=== PATIENT | male | born 1950 | race Caucasian/White ===

== ENCOUNTER → 2017-04-03 | Outpatient (CLI) | payer MEDICARE, OTHER ==
[~2017-04-03] MED LIST: COLACE100 MG; COLACE100 MG PO; DIOVAN HCT 80-1 EACH PO; FLEXERIL10 MG PO; MAG-OX-400(241400 MG PO; MILK OF MA400 MG/5 M PO; MIRALAX17 GM PO; NEURONTIN400 MG PO; NEXIUM40 MG PO; NORCO 5-325 MG1 TAB PO; VALSARTAN-HCTZ1 EAC2 PO; ZANTAC150 MG PO; ZANTAC300 MG PO
== END | disposition disaster alternative care site (69) ==
LOC: GRAD 13:00
DX: J32.9 Chronic sinusitis, unspecified (principal); J34.89 Other specified disorders of nose and nasal sinuses; Z98.890 Other specified postprocedural states